=== PATIENT | male | born 1975 | race Caucasian/White ===

== ENCOUNTER 2016-12-16 18:56 | Emergency (ER) | payer BC, OTHER ==
[2013-12-06 15:04] VITALS: BP 134/67; PULSE 77; RESP 20; TEMP 98
[~2016-12-16] VITALS: Ht 177.8 cm; Wt 96.0 kg
[~2016-12-16 18:56] MED LIST: PHEN100C PO
[2016-12-16 19:14] VITALS: Ht 177.8 cm; Wt 96.0 kg
[2016-12-16] MEDS ORDERED: KETOROLAC 60 MG INJ IM STA (20:44)
[2016-12-16] MEDS ORDERED: HYDROCODONE/APAP (5/325) TAB PO ONE (21:00)
--- NOTE | 2016-12-16 21:59 | RADRPT ---
PROCEDURE: CT Lumbar Spine without contrast. CLINICAL INDICATION: Low back pain. TECHNIQUE: CT of the lumbar spine without contrast was performed. Axial images were obtained [facility] the lumbar spine and reformatted at 2.5 mm slice thickness. Coronal and sagittal images were ref ormatted. The CTDIvol = 23.98 mGy and DLP = 634.41 mGy-cm. COMPARISON: None available FINDINGS: Vertebral bodies: There is preservation of lordosis, stature, mineralization and attenuation of the five [id number] levels. Small endplate Schmorl's nodes at the L1 level are seen. Degenerative endplate spondylosis is most pronounced laterally at L5-S1 Conus medularis region: Normal in attenuation and termination estimated at the L1 level. T12-L1: No discogenic abnormality of significance is seen. There is no facet arthropathy. The centr al canal is patent. There is no evidence for foraminal stenosis. L1-L2: No discogenic abnormality of significance is seen. There is no facet arthropathy. The ligamen daphne flava are normal in thickness. The central canal is patent. There is no evidence for foraminal stenosis. L2-L3: No discogenic abnormality of significance is seen. There is no facet arthropathy. The ligamen daphne flava are normal in thickness. The central canal is patent. There is no evidence for foraminal stenosis. L3-L4:No discogenic abnormality of significance is seen. There is no facet arthropathy. The ligament um flava are normal in thickness. The central canal is patent. There is no evidence for foraminal stenosis. L4-L5: No discogenic abnormality of significance is seen. There is no facet arthropathy. The ligamen daphne flava are normal in thickness. The central canal is patent. There is no evidence for foraminal stenosis. L5-S1: Vacuum disk phenomenon with moderate diffuse loss of disk stature. Osteophyte and disk compl ex of approximately 5 mm is circumferential and extends into the foramina. There is no facet arthrop athy. The ligamentum flava are normal in thickness. The central canal is patent. Moderate bilatera l lateral recess and foraminal stenosis is present caused by osteophyte and disk complex. Sacrum and sacroiliac joints: No abnormalities are identified, the joints are normal and symmetric. None spine related findings: No abnormalities are demonstrated. RPTAT:HJJR IMPRESSION: 1. Vacuum disk phenomenon with moderate degenerative disk narrowing and circumferential osteophyte and disk complex at L5-S1 contributing to moderate bilateral lateral recess and foraminal stenosis w ithout central canal compromise. 2. Incidental small L1 superior and inferior end plate Schmorl's nodes. 3. Remainder of the examination is unremarkable. Physician Som Date Time Electronically viewed and signed by Konstantin Summers Physician on 12/16/2016 21:58 JR/
[2016-12-16] MEDS ORDERED: HYDR-906 PO (22:09)
[2016-12-16] MEDS ORDERED: NAPR-260 PO (22:09)
[2016-12-16] MEDS ORDERED: MED4DP PO (22:14)
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
== END 2016-12-16 22:18 | disposition home or self-care (01) ==
LOC: FTE 18:56
DX: M54.5 Low back pain (principal)
CPT/HCPCS: 72131; J1885; 96372

== ENCOUNTER 2017-09-04 19:35 | Emergency (ER) | END 2017-09-04 23:19 | disposition home or self-care (01) ==

== ENCOUNTER 2017-12-28 21:47 | Emergency (ER) | END 2017-12-29 02:07 | disposition home or self-care (01) ==

== ENCOUNTER 2018-01-24 20:56 | Emergency (ER) | END 2018-01-24 23:49 | disposition home or self-care (01) ==

== ENCOUNTER 2018-01-28 23:09 | Emergency (ER) | END 2018-01-29 03:44 | disposition home or self-care (01) ==

== ENCOUNTER 2018-02-08 09:29 | Emergency (ER) | END 2018-02-08 12:18 | disposition home or self-care (01) ==

== ENCOUNTER 2018-03-14 21:07 | Emergency (ER) | END 2018-03-15 00:01 | disposition home or self-care (01) ==

== ENCOUNTER 2018-04-15 17:44 | Observation (INO) | END 2018-04-17 15:30 | disposition home or self-care (01) ==

== ENCOUNTER → 2018-05-20 | Outpatient (CLI) | END | disposition home or self-care (01) ==

== ENCOUNTER 2018-06-24 12:39 | Day surgery (SDC) | END 2018-06-24 17:26 | disposition home or self-care (01) ==

== ENCOUNTER 2018-11-04 22:46 | Inpatient (IN) | payer OTHER ==
[~2018-11-04] VITALS: Ht 185.4 cm; Wt 102.5 kg
[~2018-11-04 22:46] MED LIST changes: +CYCL10TA7 PO; +GABA-526 PO; +IBUP-1542 PO; +LEVO50TA71 PO; +NORCO PO; -PHEN100C PO; +PHEN300C2 PO
[2018-11-04] MEDS ORDERED: HYDROmorphONE 1 MG/ML SYG IV STA (23:53)
[2018-11-04] MEDS ORDERED: ONDANSETRON 4 MG INJ IV STA (23:53)
[2018-11-04] MEDS ORDERED: FAMOTIDINE 20 MG INJ IV STA (23:53)
[2018-11-04] MEDS ORDERED: SOD CHLORIDE 0.9% 1,000 ML IV STA (23:53)
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
[2018-11-05] MEDS ORDERED: SOD CHLORIDE 0.9% 100 ML ONE (00:29)
[2018-11-05] MEDS ORDERED: IOHEXOL 300MG/ML 150 ML BTL ONE (00:29)
[2018-11-05] MEDS ORDERED: OMEP40CA6 PO (00:37)
[2018-11-05] MEDS ORDERED: CHOL200056 PO (00:37)
[2018-11-05] MEDS ORDERED: HYDR-3605 PO (00:37)
[2018-11-05] MEDS ORDERED: SOD CHLORIDE 0.9% 1,000 ML IV SCH (02:31)
[2018-11-05] MEDS ORDERED: ONDANSETRON 4 MG INJ IV PRN (03:00)
[2018-11-05] MEDS ORDERED: ACETAMINOPHEN 325 MG TAB PO PRN (03:00)
[2018-11-05] MEDS ORDERED: ONDANSETRON 4 MG INJ IV STA (03:07)
[2018-11-05] MEDS ORDERED: HYDROmorphONE 1 MG/ML SYG IV STA (03:07)
[2018-11-05] MEDS ORDERED: ALBUTEROL/IPRATROPIUM (NEB) 3 ML AMP HHN PRN (03:30)
[2018-11-05] MEDS ORDERED: NACL 0.9% 3 ML SYG IV SCH (03:30)
[2018-11-05] MEDS: DEXTROSE 5%-0.45% NACL 1,000 ML IV SCH ×4 (03:57→23:31)
[2018-11-05 04:06] VITALS: BP 130/78; PULSE 86; RESP 18
[2018-11-05 05:25] VITALS: Ht 185.4 cm; Wt 102.5 kg
--- NOTE | 2018-11-05 06:11 | HP ---
Date/Time of Note Date/Time of Note DATE: 11/05/18 TIME: 06:07 Assessment/Plan VTE Prophylaxis SCD applied (from Nsg): Yes Pharmacological prophylaxis: NA/contraindicated Pharm contraindication: other (Here with bowel obstruction may need surgery) Lines/Catheters IV Catheter Type (from Nrsg): Saline Lock Assessment/Plan Assessment/Plan 1. Small bowel obstruction -Patient is status post open right incarcerated inguinal hernia repair with mesh by Dr Barth on 04/15/18 -Keep n.p.o. with IV fluid -NG tube to the monitor and suction 2. History of seizure: Last seizure many years ago 3. Hypothyroidism: Continue Synthroid -TSH elevated. Follow-up free T4 4. GERD: PPI 5. Watery diarrhea: Patient reported having had multiple watery diarrhea over the past 2 days. -Stool studies including C. difficile Result Diagram: 11/05/186 11/05/18445 Results 24hrs Laboratory Tests Test 11/05/18 00:02 11/05/18 00:03 11/05/18 04:46 Sodium Level 138 139 Potassium Level 3.9 4.2 Chloride Level 106 108 Carbon Dioxide Level 25 23 Anion Gap 7 8 Blood Urea Nitrogen 11 9 Creatinine 0.63 0.65 Est Glomerular Filtrat Rate mL/min > 60 > 60 Glucose Level 91 100 Calcium Level 9.4 8.9 Total Bilirubin 0.2 0.2 Direct Bilirubin 0.00 0.00 Indirect Bilirubin 0.2 0.2 Aspartate Amino Transf (AST/SGOT) 42 41 Alanine Aminotransferase (ALT/SGPT) 48 48 Alkaline Phosphatase 131 H 131 H Total Protein 7.6 7.5 Albumin 4.5 4.2 Globulin 3.10 3.30 H Albumin/Globulin Ratio 1.45 1.27 Lipase 58 White Blood Count 5.2 # 7.3 # Red Blood Count 4.86 4.81 Hemoglobin 14.3 14.2 Hematocrit 43.6 43.6 Mean Corpuscular Volume 89.7 90.6 Mean Corpuscular Hemoglobin 29.4 29.5 Mean Corpuscular Hemoglobin Concent 32.8 32.6 Red Cell Distribution Width 13.6 13.8 Platelet Count 294 267 Mean Platelet Volume 8.9 9.4 Immature Granulocytes % 0.400 0.300 Neutrophils % 64.2 68.4 Lymphocytes % 23.0 21.4 Monocytes % 10.3 8.4 Eosinophils % 1.5 1.1 Basophils % 0.6 0.4 Nucleated Red Blood Cells % 0.0 0.0 Immature Granulocytes # 0.020 0.020 Neutrophils # 3.4 5.0 Lymphocytes # 1.2 1.6 Monocytes # 0.5 0.6 Eosinophils # 0.1 0.1 Basophils # 0.0 0.0 Nucleated Red Blood Cells # 0.0 0.0 Phosphorus Level 2.8 Magnesium Level 2.1 Thyroid Stimulating Hormone (TSH) 8.990 H HPI/ROS Admit Date/Time Admit Date/Time Nov 05, 2018 at 02:31 Hx of Present Illness This is a 42-year-old male with a history of seizure, TBI, GERD, hypothyroidism, incarcerated inguinal hernia status post repair. Patient presents the ER complaining of abdominal pain/distention as well as nausea/vomiting. He also reported watery diarrhea. Patient has a history of incarcerated large right inguinal hernia, and is status post open right incarcerated inguinal hernia repair with mesh by Dr Barth on 04/15/18. When he presented to ER, vitals were stable. CBC and CMP unremarkable. TSH elevated, around 9. CT abdomen/pelvis shows a small bowel obstruction. PMH/Family/Social Past Medical History Medical History: other (See HPI) Medications Current Medications Sodium Chloride 1,000 ml @ 80 mls/hr [id number] IV ; Start 11/05/18 at 02:31; St op 11/05/18 at 15:00 Ondansetron HCl (Zofran Inj) 4 mg BRIDGE ORDER PRN IV NAUSEA/VOMITING; Start at 03:00; Stop 11/06/18 at 02:59 Acetaminophen (Tylenol Tab) 650 mg ER BRIDGE PRN PO .MILD PAIN 1-3 OR TEMP; Start 11/05/18 at 03:00; Stop 11/06/18 at 02:59 Dextrose/Sodium Chloride 1,000 ml @ 120 mls/hr Q8H20M IV Last administered on 11/05/18at 03:57; Admin Dose 120 MLS/HR; Start 11/05/18 at 03:10 IV Flush (NS 3 ml) 3 ml PER PROTOCOL IV ; Start 11/05/18 at 03:30 Ondansetron HCl (Zofran Inj) 4 mg Q6H PRN IV NAUSEA/VOMITING; Start 11/05/18 at 03:30 Morphine Sulfate (morphine) 2 mg Q4H PRN IV .SEVERE PAIN 7-10; Start 11/05/18 at 03:30 Albuterol/ Ipratropium (Duoneb) 3 ml Q2H RESP THERAPY PRN HHN SHORTNESS OF BREATH; Start 11/05/18 at 03:30 Coded Allergies: No Known Allergy (Unverified , 11/05/18) Past Surgical History Past Surgical Hx: other (See HPI) Family History Significant Family History: no pertinent family hx Social History Alcohol Use: none Smoking Status: Unknown if ever smoked Drug Use: none Exam/Review of Systems Vital Signs Vitals Vital Signs Date Temp Pulse Resp B/P (MAP) Pulse Ox O2 O2 Flow FiO2 Time Delivery Rate 11/05/18 97.8 86 18 130/78 98 04:06 (95) 11/05/18 Room Air 03:25 Intake and Output 11/04/18 11/04/18 11/05/18 1515:00 23:00 07:00 OutputOutput Total 200 ml BalanceBalance -200 ml Exam Constitutional: alert, oriented, well developed Head: normocephalic, atraumatic Eyes: EOMI, PERRL Respiratory: clear to auscultation, normal air movement Cardiovascular: regular rate and rhythm, nl pulses Gastrointestinal: soft, non-tender Extremities: normal pulses DIMITRIOS NORMAN MD Nov 05, 2018 06:11
[2018-11-05 08:49] VITALS: BP 122/84; PULSE 68; RESP 18
[2018-11-05] MEDS: ONDANSETRON 4 MG INJ IV PRN (13:46)
[2018-11-05] MEDS: morphine 2 MG INJ IV PRN ×2 (13:46→17:44)
[2018-11-05 14:00] VITALS: BP 128/78; PULSE 74; RESP 18
[2018-11-05 20:30] VITALS: BP 128/88; PULSE 54; RESP 19
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
[2018-11-06] MEDS: morphine 2 MG INJ IV PRN ×4 (01:40→20:10)
[2018-11-06 02:33] VITALS: BP 129/77; PULSE 83; RESP 18
[2018-11-06] MEDS ORDERED: PHENOL 1.4% SOLN 180 ML BTL MT PRN ×2 (04:30→17:00)
[2018-11-06 07:33] VITALS: BP 122/77; PULSE 57; RESP 18
[2018-11-06] MEDS: FAMOTIDINE 20 MG INJ IV SCH (08:17)
[2018-11-06] MEDS: ENOXAPARIN 40 MG/0.4 ML SYG SC SCH (08:22)
[2018-11-06] MEDS ORDERED: DIATR MEGLU/DIATRIZOATE SODIUM 120 ML BTL ONE (11:21)
[2018-11-06] MEDS: ONDANSETRON 4 MG INJ IV PRN (13:23)
[2018-11-06] MEDS: DEXTROSE 5%-0.45% NACL 1,000 ML IV SCH (13:23)
[2018-11-06 14:00] VITALS: BP 115/60; PULSE 92; RESP 19
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
[2018-11-06 20:28] VITALS: BP 141/80; PULSE 62; RESP 20
[2018-11-06] MEDS ORDERED: PHENYTOIN 100 MG CAP PO SCH (21:30)
[2018-11-07] MEDS: DEXTROSE 5%-0.45% NACL 1,000 ML IV SCH ×2 (01:38→11:32)
[2018-11-07 02:17] VITALS: BP 138/78; PULSE 60; RESP 17
[2018-11-07] MEDS ORDERED: LEVOTHYROXINE 50 MCG TAB PO SCH (07:00)
[2018-11-07 07:22] VITALS: BP 116/70; PULSE 65; RESP 18
[2018-11-07] MEDS: FAMOTIDINE 20 MG INJ IV SCH (08:15)
[2018-11-07] MEDS: ENOXAPARIN 40 MG/0.4 ML SYG SC SCH (08:17)
[2018-11-07 13:38] VITALS: BP 114/60; PULSE 60; RESP 18
--- NOTE | 2018-11-07 16:52 | PDOCDIS ---
Discharge Instructions CONDITION [id number] Patient Condition: [id number] Stable HOME CARE INSTRUCTIONS: [id number] Diet Instructions: [id number] Regular ACTIVITY: [id number] Activity Restrictions: [id number] Slowly Increase Activity Avoid heavy lifting FOLLOW UP/APPOINTMENTS Follow-up Plan appt primary 1wk GI referral 2wks NAKUL DICKSON MD Nov 07, 2018 16:52
[2018-11-07] MEDS ORDERED: PHEN177S68 MT (16:53)
[2018-11-07] MEDS ORDERED: DOCUSATE SODIUM 100 MG CAP PO PRN (17:00)
--- NOTE | 2018-11-07 19:20 | DS ---
Date/Time of Note Date/Time of Note DATE: 11/07/18 TIME: 19:17 Discharge Summary Admission/Discharge Info Admit Date/Time Nov 05, 2018 at 02:31 Discharge Date/Time Nov 07, 2018 at 18:49 Patient Condition: Stable Procedures CT Abdomen and Pelvis with contrast. CLINICAL INDICATION: Abdominal pain. TECHNIQUE: CT scan of the abdomen and pelvis with contrast was performed on a multi-detector high-resolution CT scanner. The patient was scanned following the uncomplicated intravenous administration of 100 cc of Omnipaque 300. Coronal and sagittal reformatted images were obtained from the axial source images. Images were reviewed on a high-resolution PACS workstation. The total exam CTDI equals 18.30 mGy and the total exam DLP equals 1375.72 mGy-cm. DICOM images are available. One or more of the following dose reduction techniques were utilized: 1.) Automated exposure control 2.) Adjustment of the mA +/- kV according to patient's size 3.) Use of iterative reconstruction technique. COMPARISON: CT examination the abdomen pelvis dated 03/14/2018. FINDINGS: CT abdomen: The lung bases are clear. The heart size is normal, without pericardial thickening or effusion. Dilated air and fluid filled loops of small bowel measure up to about 37 mm in diameter. There is a narrow caliber small bowel in the right pelvis. Findings are compatible with at least low to intermediate grade. Small bowel obstruction is at least partial. Liquid stool throughout the colon. The liver is normal in size and density without focal mass or intrahepatic biliary dilatation. The spleen is normal in size and homogeneous in density. The stomach is partially collapsed, but is grossly unremarkable. The pancreas as visualized is normal. The gallbladder and biliary tree are unremarkable and there is no evidence for biliary dilatation. The adrenal glands are symmetric and normal. The kidneys are symmetrically unremarkable as well. No renal calculus or obstructive uropathy or mass lesion is seen. The aorta is of normal caliber. No abdominal aortic vascular calcifications are present. There is no retroperitoneal lymphadenopathy. The edgardo hepatis region is clear. CT pelvis: Small bowel obstruction. The transition point is not clear, although a narrow caliber air containing small bowel is seen in the left lower pelvis. The pelvic organs are otherwise normal. The pelvic sidewalls and inguinal regions are clear. Liquid stool in the sigmoid colon. Otherwise, the sigmoid colon and re ctum are otherwise. No mass or adenopathy is seen. No free fluid is identified. No acute inflammation is seen. The bladder is normal. The surrounding osseous structures are remarkable for discectomy L4-5 level with disc spacer in place. No osteolytic or osteoblastic lesion is detected. IMPRESSION: 1. Small bowel obstruction, at least low to intermediate grade. 2. Liquid stool throughout the colon. Hx of Present Illness 42-year-old gentleman admitted with abdominal pain. Hospital Course Hospitalist coverage/hospital course Admitted and evaluated for bowel obstruction. Treated conservatively with NG/ bowel rest. Next, small bowel series done. This was normal/ no further obstruction. Patient is tolerating diet, stable for discharge. Recommend he visit GI in 2 3 weeks for an opinion on etiology. Patient's TSH is elevated. May need adjustment soon A/P 1) P- SBO; ng/npo; stable, small bowel series normal. Stable discharge 2) H/o hernia repair in [place]? 3) Hypothyroidism? 4) Interm constipation 5) H/o back surgery 6) Seizure dz 7) diarrhea 8) Gerd 9) Ho TBI S; 11/05: Loose bms. no fever/ dyspnea 11/06: Patient feels better 11/07: Tolerating diet O: vss PE no pallor ng reg s1s2 no mrg ctab bs dimin; nt nd; no r r g no edema Home Meds Active Scripts Phenol (Phenaseptic) 177 Ml [place], 2 SPRAY MT Q2H PRN for SORE THROAT for 1 Day, SPRAY Prov:NAKUL DICKSON MD 11/07/18 Ibuprofen* (Ibuprofen*) 600 Mg Tablet, 600 MG PO Q6 PRN for PAIN for 30 Days, #30 TAB Prov:HOSSEIN PRADO PA-C 10/06/18 Reported Medications Cholecalciferol (Vitamin D3) (Vitamin D-3) 2,000 Unit Tablet, 2000 UNIT PO DAILY 11/05/18 Omeprazole* (Omeprazole*) 40 Mg Capsule., 40 MG PO DAILY for 30 Days, #30 11/05/18 Gabapentin* (Gabapentin*) 600 Mg Tablet, 600 MG PO BID, #60 TAB 04/15/18 Levothyroxine Sodium* (Levoxyl*) 50 Mcg Tablet, 50 MCG PO BEFORE BREAKFAST, #30 TAB 04/15/18 Phenytoin* Sodium Extended (Dilantin*) 300 Mg Capsule, 300 MG PO HS, CAP 04/15/18 Discontinued Reported Medications Hydrocodone/Acetaminophen (Hydrocodon-Acetaminoph 7.5-325) 1 Each Tablet, 1 TAB PO Q6H for 30 Days TK 1 T PO Q 6 H 11/05/18 [[place] ] No Conflict Check, PO DAILY PRN for PAIN AND/OR INFLAMMATION 06/24/18 Cyclobenzaprine Hcl* (Cyclobenzaprine Hcl*) 10 Mg Tablet, 10 MG PO Q8 PRN for MUSCLE SPASMS, #60 TAB 04/15/18 Follow-up Plan appt primary 1wk GI referral 2wks Primary Care Provider Not On Staff Doctor Time spent on discharge: > 30 minutes Pending Labs Laboratory Tests Test 11/07/18 04:30 White Blood Count 6.0 10^3/ul (4.8-10.8) Red Blood Count 4.60 10^6/ul (4.70-6.10) Hemoglobin 13.6 g/dl (14.0-18.0) Hematocrit 40.8 % (42.0-52.0) Mean Corpuscular Volume 88.7 fl (82.0-101.0) Mean Corpuscular Hemoglobin 29.6 pg (29.0-33.0) Mean Corpuscular Hemoglobin Concent 33.3 g/dl (32.0-37.0) Red Cell Distribution Width 13.3 % (11.5-14.5) Platelet Count 280 10^3/UL (140-415) Mean Platelet Volume 9.1 fl (7.4-10.4) Immature Granulocytes % 0.300 % (0.001-0.429) Neutrophils % 61.6 % (39.0-77.0) Lymphocytes % 25.0 % (15.0-51.0) Monocytes % 10.6 % (0.0-11.0) Eosinophils % 1.8 % (0.0-7.0) Basophils % 0.7 % (0.0-2.0) Nucleated Red Blood Cells % 0.0 /100WBC (0.0-0.0) Immature Granulocytes # 0.020 10^3/ul (0.0-0.031) Neutrophils # 3.7 10^3/ul (1.6-7.5) Lymphocytes # 1.5 10^3/ul (0.8-2.9) Monocytes # 0.6 10^3/ul (0.3-0.9) Eosinophils # 0.1 10^3/ul (0.0-0.5) Basophils # 0.0 10^3/ul (0.0-0.1) Nucleated Red Blood Cells # 0.0 10^3/ul (0.0-0.0) Sodium Level 141 mmol/L (135-144) Potassium Level 3.8 mmol/L (3.5-5.1) Chloride Level 106 mmol/L (97-110) Carbon Dioxide Level 27 mmol/L (21-31) Anion Gap 8 (5-13) Blood Urea Nitrogen 9 mg/dl (7-20) Creatinine 0.75 mg/dl (0.61-1.24) Est Glomerular Filtrat Rate mL/min > 60 mL/min (>60) Glucose Level 95 mg/dl (70-220) Calcium Level 8.8 mg/dl (8.4-10.2) Phosphorus Level 3.9 mg/dl (2.5-4.9) Magnesium Level 2.0 mg/dl (1.7-2.5) Total Bilirubin 0.2 mg/dl (0.2-1.3) Direct Bilirubin 0.00 mg/dl (0.00-0.20) Indirect Bilirubin 0.2 mg/dl (0-1.1) Aspartate Amino Transf (AST/SGOT) 42 IU/L (15-46) Alanine Aminotransferase (ALT/SGPT) 67 IU/L (13-69) Alkaline Phosphatase 122 IU/L (42-121) Total Protein 6.4 g/dl (6.1-8.1) Albumin 3.7 g/dl (3.3-4.9) Globulin 2.70 g/dl (1.3-3.2) Albumin/Globulin Ratio 1.37 NAKUL DICKSON MD Nov 07, 2018 19:20
[2018-11-07] MEDS ORDERED: PHENYTOIN 100 MG CAP PO SCH (21:00)
== END 2018-11-07 18:49 | disposition home or self-care (01) | DRG 390 ==
LOC: E/R 22:46 → MS1 11-05 02:31 → CANRESERV 11-05 03:08
PROVIDERS: ADMIT Internal Medicine; ATTEND Internal Medicine
DX: K56.600 Partial intestinal obstruction, unspecified as to cause (principal); E03.9 Hypothyroidism, unspecified; K21.9 Gastro-esophageal reflux disease without esophagitis; G40.909 Epilepsy, unspecified, not intractable, without status epilepticus; K59.00 Constipation, unspecified
CPT/HCPCS: 36415; 74177; 74250; 80053; 83036; 83690; 83735; 84100; 84439; 84443; 84480; 85025; 87075; 96361; 96374; 96375; J1170; J1650; J2270; J2405; J7030; J7042; Q9967

== ENCOUNTER 2018-12-02 19:30 | Emergency (ER) | payer OTHER ==
[~2018-12-02] VITALS: Wt 98.0 kg
[~2018-12-02 19:30] MED LIST changes: +CHOL200056 PO; -CYCL10TA7 PO; -NORCO PO; +OMEP40CA6 PO; +PHEN177S68 MT
[2018-12-02 19:33] VITALS: BP 144/61; PULSE 71; RESP 18
[2018-12-02] MEDS ORDERED: FLUORESCEIN STRIP LEFT EYE ONE (20:00)
[2018-12-02] MEDS ORDERED: TETRACAINE 0.5% 4 ML OPH LEFT EYE ONE (20:00)
[2018-12-02] MEDS ORDERED: ERYT1OIN6 LEFT EYE (21:07)
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
== END 2018-12-02 21:18 | disposition home or self-care (01) ==
LOC: FTE 19:30
DX: S05.02XA Injury of conjunctiva and corneal abrasion without foreign body, left eye, initial encounter (principal); E03.9 Hypothyroidism, unspecified; X58.XXXA Exposure to other specified factors, initial encounter; Y92.9 Unspecified place or not applicable
CPT/HCPCS: Z7502; Z7610; 99283

== ENCOUNTER 2019-01-27 21:21 | Emergency (ER) | payer OTHER ==
[~2019-01-27] VITALS: Ht 185.4 cm; Wt 101.3 kg
[~2019-01-27 21:21] MED LIST changes: +ERYT1OIN6 LEFT EYE
[2019-01-27 21:58] VITALS: BP 139/69; PULSE 68; RESP 18; Ht 185.4 cm; Wt 101.3 kg
[2019-01-28] MEDS ORDERED: HC30CR25 TOP (00:06)
[2019-01-28] MEDS ORDERED: BEN25 PO (00:06)
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
== END 2019-01-28 00:22 | disposition home or self-care (01) ==
LOC: FTE 21:21
DX: T63.441A Toxic effect of venom of bees, accidental (unintentional), initial encounter (principal); E03.9 Hypothyroidism, unspecified
CPT/HCPCS: 99283

== ENCOUNTER 2019-02-07 19:40 | Emergency (ER) | payer OTHER ==
[~2019-02-07] VITALS: Ht 185.4 cm; Wt 100.5 kg
[~2019-02-07 19:40] MED LIST changes: +BEN25 PO; +HC30CR25 TOP
[2019-02-07 19:42] VITALS: Ht 185.4 cm; Wt 100.5 kg
[2019-02-07] MEDS ORDERED: KETOROLAC 60 MG INJ IM STA (22:59)
[2019-02-07] MEDS ORDERED: METHYLPREDNISOLONE 125 MG INJ IM ONE (23:00)
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
[2019-02-08] MEDS ORDERED: MED4DP PO (02:37)
[2019-02-08] MEDS ORDERED: IBUP800T48 PO (02:37)
[2019-02-08 02:47] VITALS: BP 131/82; PULSE 66; RESP 19
== END 2019-02-08 02:49 | disposition home or self-care (01) ==
LOC: FTE 19:40
DX: M54.5 Low back pain (principal); E03.9 Hypothyroidism, unspecified; Z87.891 Personal history of nicotine dependence
CPT/HCPCS: 72100; 96372; J1885; J2930; Z7502

== ENCOUNTER 2019-06-14 16:05 | Emergency (ER) | payer OTHER ==
[~2019-06-14] VITALS: Ht 185.4 cm; Wt 100.0 kg
[~2019-06-14 16:05] MED LIST changes: +BEN50 PO; +CEPH-443 PO; +CETI10CA PO; +EPIN0.3P4 INJ; +HYDR-4011 PO; +HYDR-845 PO; +IBUP800T48 PO; +MED4DP PO; +OMEP40CA38 PO; -OMEP40CA6 PO; -PHEN177S68 MT; +PHEN177S75 MT; +SULF1TAB31 PO
[2019-06-14 16:17] VITALS: BP 120/75; PULSE 74; RESP 18; Ht 185.4 cm; Wt 100.0 kg
[2019-06-14] MEDS ORDERED: DIPHTH/TET/ACEL PERTUSS (ADULT) 0.5 ML VIAL IM* ONE (17:00)
[2019-06-14] MEDS ORDERED: LIDOCAINE 1% (MPF) 5 ML VIAL INFIL ONE (17:00)
== END 2019-06-14 17:43 | disposition home or self-care (01) ==
LOC: FTE 16:05
DX: S71.111A Laceration without foreign body, right thigh, initial encounter (principal); W26.8XXA Contact with other sharp object(s), not elsewhere classified, initial encounter; Y92.9 Unspecified place or not applicable; Z23 Encounter for immunization; Z87.891 Personal history of nicotine dependence
CPT/HCPCS: 12002; 90471; 90715; Z7502; Z7610